=== PATIENT | male | born 1980 ===

== ENCOUNTER 2021-04-17 17:26 | Emergency (ER) | payer OTHER ==
[~2021-04-17] VITALS: Ht 175.3 cm; Wt 86.2 kg
== END 2021-04-17 18:53 | disposition home or self-care (01) ==
LOC: ER 17:26
DX: S86.112A Strain of other muscle(s) and tendon(s) of posterior muscle group at lower leg level, left leg, initial encounter (principal); X58.XXXA Exposure to other specified factors, initial encounter; Y99.0 Civilian activity done for income or pay; Y92.828 Other wilderness area as the place of occurrence of the external cause
CPT/HCPCS: 99283; A9270